=== PATIENT | female | born 1955 | race Caucasian/White ===

== ENCOUNTER 2022-01-19 10:49 | Emergency (ER) | payer OTHER ==
[~2022-01-19] VITALS: Ht 160 cm; Wt 58.5 kg
[2022-01-19 10:57] VITALS: BP_SYST 137
[2022-01-19 11:30] LABS: BASOPHILS % (AUTO) 1.1 % (0.0-2.0); EOSINOPHILS # (AUTO) 0.2 K/uL (0.0-0.4); HEMATOCRIT 35.9 % (36-48); HEMOGLOBIN 12.2 g/dL (12.0-16.0); LYMPHOCYTES # (AUTO) 1.7 K/uL (1.0-5.5); LYMPHOCYTES % (AUTO) 38.5 % (20.5-51.5); MEAN CORPUSCULAR HEMOGLOBIN 29 pg (27-31); MEAN CORPUSCULAR HGB CONC 34 % (32-36); MEAN CORPUSCULAR VOLUME 87 fL (79.0-98.0); MONOCYTES # (AUTO) 0.3 K/uL (0.0-1.0); MONOCYTES % (AUTO) 7.6 % (1.7-9.3); NEUTROPHILS # (AUTO) 2.1 K/uL (1.8-7.7); NEUTROPHILS % (AUTO) 47.8 % (40.0-70.0); PLATELET COUNT (AUTO) 237 K/uL (130-430); RED BLOOD CELL COUNT(AUTO) 4.14 MIL/uL (4.2-6.2); RED CELL DISTRIBUTION WIDTH 13.4 % (9.0-15.0); WHITE BLOOD COUNT (AUTO) 4.5 K/uL (4.8-10.8)
[2022-01-19 11:43] LABS: CALCIUM 9.1 mg/dL (8.4-11.0); CREATININE 0.72 mg/dL (0.55-1.30)
[2022-01-19 11:49] LABS: ALBUMIN 3.9 g/dL (3.4-4.8); TOTAL BILIRUBIN 1.5 mg/dL (0.0-1.0)
[2022-01-19] MEDS ORDERED: MAG-AL HYDROX/SIMETH 30 ML UDC PO ONE (12:00)
[2022-01-19] MEDS ORDERED: FAMOTIDINE 20 MG TABLET PO ONE (12:00)
[2022-01-19 12:03] LABS: BILIRUBIN,URINE NEGATIVE (NEGATIVE); BLOOD, URINE 1+ (NEGATIVE); CLARITY/URINE SL CLOUDY (CLEAR); COLOR,URINE YELLOW (YELLOW); GLUCOSE,URINE NEGATIVE (NEGATIVE); KETONES,URINE NEGATIVE (NEGATIVE); LEUKOCYTE ESTERASE ,URINE TRACE (NEGATIVE); NITRITE, URINE NEGATIVE (NEGATIVE); PH,URINE 5.5 (5.0-8.0); PROTEIN URINE NEGATIVE (NEGATIVE); UROBILINOGEN,URINE 0.2 (0.2-1.0)
[2022-01-19 12:11] LABS: BACTERIA,URINE None Seen /HPF (None Seen); MUCUS,URINE None Seen /LPF (None Seen); RBC,URINE 0-3 /HPF (0-3); WBC,URINE 0-3 /HPF (0-3)
[2022-01-19] MEDS ORDERED: MORPHINE 4 MG INJ. 4 MG/ML VIAL IVP ONE (15:00)
[2022-01-19] MEDS ORDERED: levETIRAcetam 1,000 MG in NS 90 ML IV ONE (18:00)
[2022-01-19] MEDS ORDERED: HYDROcodone/ACETAMIN 7.5-325 MG TAB PO ONE (20:15)
[2022-01-19] MEDS ORDERED: ONDANSETRON 4 MG ODT TAB PO ONE (20:15)
[2022-01-20] MEDS ORDERED: MORPHINE 2 MG/ML INJ. SYRINGE IVP ONE (07:45)
[2022-01-20] MEDS ORDERED: ONDANSETRON HCL 4 MG/2 ML VIAL IVP ONE (07:45)
[2022-01-20 08:53] VITALS: BP_SYST 96
== END 2022-01-20 08:55 | disposition home or self-care (01) ==
LOC: SED 10:49
DX: R19.06 Epigastric swelling, mass or lump (principal); Z79.899 Other long term (current) drug therapy; Z20.822 Contact with and (suspected) exposure to COVID-19
CPT/HCPCS: 99285; 74177; 96374; 87426; 80053; 81000; 83690; 85025; 87086; 36415; 74021; 76376; Q0162; J2270 ×2; Q9967; J2405